=== PATIENT | female | born 1990 | race American Indian/Alaskan Native ===

== ENCOUNTER 2019-08-30 08:30 | Inpatient (IN) | payer MEDICAID ==
[2019-08-30] MEDS ORDERED: DINOPROSTONE 10 MG VAG SUPP VG NR (10:00)
[2019-08-30 10:10] LABS: Hematocrit 31.2 % (30.3-42.9); Hemoglobin 10.1 gm/dl (10.1-14.3); Mean Corpuscular HGB Conc 32 % (30-34); Mean Corpuscular Volume 84 fl (79-97); Platelet Count 184 K/mm3 (140-440); Red Blood Count 3.69 M/mm3 (3.65-5.03); Red Cell Distribution Width 14.8 % (13.2-15.2)
[2019-08-30] MEDS: LACTATED RINGERS 1,000 ML IV SCH ×3 (11:00→18:11)
[2019-08-30] MEDS ORDERED: LACTATED RINGERS 1,000 ML ONE (11:09)
[2019-08-30] MEDS ORDERED: BUTORPHANOL 2 MG/1 ML INJ IV PRN ×2 (11:24)
[2019-08-30] MEDS ORDERED: ePHEDrine SULFATE 50 MG/1 ML INJ IV PRN ×2 (11:24→17:56)
[2019-08-30] MEDS ORDERED: MINERAL OIL 30 ML ORAL LIQD PO PRN (11:24)
[2019-08-30] MEDS ORDERED: TERBUTALINE 1 MG/1 ML INJ IVP PRN (11:24)
[2019-08-30] MEDS ORDERED: TERBUTALINE 1 MG/1 ML INJ SUB-Q PRN (11:24)
[2019-08-30] MEDS ORDERED: OXYTOCIN DRIP 30 UNITS/500 ML BAG IV SCH ×2 (12:00)
[2019-08-30] MEDS ORDERED: OXYTOCIN 20 UNIT/1000ML DRIP 20 UNITS/1,000 ML BAG IV SCH ×2 (12:00→23:45)
[2019-08-30] MEDS ORDERED: LIDOCAINE (2%) 20 MG/1 ML VIAL 20 ML MDV INFILTRATI ONE (12:00)
--- NOTE | 2019-08-30 13:29 | History and Physical Report ---
History of Present Illness Date of examination: 08/30/19 Date of admission: 08/30/19 Chief complaint: 29 yo at 39 weeks here for IOL for anti e alloimmunization Past History Past Medical History: no pertinent history Past Surgical History: no surgical history Family/Genetic History: none Social history: no significant social history, single. denies: smoking, alcohol abuse, prescription drug abuse - Obstetrical History Expected Date of Delivery: 09/04/19 Actual Gestation: 39 Week(s) 2 Day(s) : 5 Para: 4 Hx # Term Pregnancies: 4 Number of Pregnancies: 0 Spontaneous Abortions: 0 Induced : 0 Number of Living Children: 4 Medications and Allergies Allergies Allergy/AdvReac Type Severity Reaction Status Date / Time No Known Allergies Allergy Unverified 08/30/19 08:50 Home Medications Medication Instructions Recorded Confirmed Last Taken Type No Known Home Medications [No 08/30/19 08/30/19 Unknown History Reported Home Medications] Active Meds: Active Medications Butorphanol Tartrate (Stadol) 1 mg IV Q2H PRN PRN Reason: Labor Pain Butorphanol Tartrate (Stadol) 2 mg IV Q2H PRN PRN Reason: Pain , Severe (7-10) Last Admin: 08/30/19 12:09 Dose: 2 mg Documented by: Dinoprostone (Cervidil) 10 mg VG ONCE NR Stop: 08/30/19 11:30 Ephedrine Sulfate (Ephedrine Sulfate) 10 mg IV Q2M PRN PRN Reason: Hypotension Oxytocin/Sodium Chloride (Pitocin/Ns 20 Unit/1000ml Drip) 20 units in 1,000 mls @ 125 mls/hr IV DIRECT FABI Oxytocin/Sodium Chloride (Pitocin/Ns 30 Unit/500ml) 30 units in 500 mls @ 0 mls/hr IV TITR FABI; Protocol Last Admin: 08/30/19 11:57 Dose: 1 ml/hr, 1 mls/hr Documented by: Lactated Ringer's (Lactated Ringers) 1,000 mls @ 125 mls/hr IV DIRECT FABI Last Admin: 08/30/19 12:05 Dose: 125 mls/hr Documented by: Lidocaine (Xylocaine 2%) 20 ml INFILTRATI ONCE ONE Stop: 08/30/19 12:01 Mineral Oil (Mineral Oil) 30 ml PO QHS PRN PRN Reason: Constipation Terbutaline Sulfate (Brethine) 0.25 mg SUB-Q ONCE PRN PRN Reason: Hyperstimulation/Hypertonicity Terbutaline Sulfate (Brethine) 0.25 mg IVP ONCE PRN PRN Reason: Hyperstimulation/Hypertonicity Review of Systems All systems: negative - Vital Signs Vital signs: Vital Signs Temp Resp 98.2 F 18 08/30/19 09:30 08/30/19 09:30 Temp Pulse Resp BP Pulse Ox 98.2 F 87 18 112/61 97 08/30/19 09:30 08/30/19 13:20 08/30/19 09:30 08/30/19 13:05 08/30/19 13:20 - Physical Exam Breasts: Positive: normal Cardiovascular: Regular rate, Normal S1 Lungs: Positive: Clear to auscultation, Normal air movement Abdomen: Positive: normal appearance, soft, normal bowel sounds. Negative: distention, tenderness, guarding Genitourinary (Female): Positive: normal external genitalia, normal perenium Vagina: Positive: normal moisture Uterus: Positive: normal size, normal contour Anus/Rectum: Positive: normal perianal skin Extremities: Positive: normal Deep Tendon Reflex Grade: Normal +2 - Obstetrical FHR: category 1 Cervical Dilatation: 1 Uterine Contraction Pattern: Regular Uterine Tone Measurement Phase: Contraction Uterine Contraction Intensity: Moderate Results Result Diagrams: 08/30/19 09:44 Abnormal lab results 08/30/19 Range/Units 09:44 MCH 27 L (28-32) pg All other labs normal. Assessment and Plan IUP 39 weeks IOL anti e admit ivf and labs intiate IOL
--- NOTE | 2019-08-30 15:21 | Consultation ---
Consult Note - Parent Education Parent(s) demonstrated understanding of all the information:: Yes Additional Comment: Discussed both parents being carriers for alpha thalassemia and implications for baby. Mother states she was educated previously and does not have any questions at this ti,e. Discussed Anti-E antibody and possibility of hydrops. US does not indicate any hydrops, information discussed with mother. Encouraged to call for any questions Assessment and Plan - Assessment Gestation:: 39 - Plan Plan: Please call NICU with questions
[2019-08-30] MEDS ORDERED: DEXMEDETOMIDINE 200 MCG/2 ML VIAL IV ONE (17:26)
[2019-08-30] MEDS ORDERED: NALOXONE 2 MG/2 ML INJ IV PRN (17:56)
[2019-08-30] MEDS ORDERED: fentaNYL-BUPIV 2 MCG/ML-0.125% 200 MCG/100 ML BAG EPIDURAL SCH (18:00)
--- NOTE | 2019-08-30 18:03 | Progress Note ---
Labor Epidural - Labor Epidural Start Time: 17:32 Stop Time: 17:42 Procedure: Patient is requesting a laboring epidural for laboring pain. Patient IDed, H&P reviewed, all questions and concerns were answered, and consent was signed. Timeout was performed at bedside. Patient in sitting position. Sterile prep and drape was performed. [3] ml of 1% lidocaine skin wheal at L[3]- L [4]. 18- gauge Touhy epidural needle was advanced to loss of resistance with air techn ique 7 cm. Negative CSF negative blood. Epidural catheter advanced to [15] centimeters. [Negative] Aspiration [negative test dose. Sterile dressing applied. Patient tolerated procedure.
--- NOTE | 2019-08-30 18:06 | Anesthesia Consultation ---
Anesthesia Consult and Med Hx Date of service: 08/30/19 - Airway Anesthetic Teeth Evaluation: Poor ROM Head & Neck: Adequate Mental/Hyoid Distance: Adequate Mallampati Class: Class II Intubation Access Assessment: Probably Good - Pulmonary Exam CTA: Yes - Cardiac Exam Cardiac Exam: RRR - Pre-Operative Health Status ASA Pre-Surgery Classification: ASA2 Proposed Anesthetic Plan: Epidural - Pulmonary Hx Smoking: Yes Hx Asthma: No Hx Respiratory Symptoms: No SOB: No COPD: No Home Oxygen Therapy: No Hx Pneumonia: No Hx Sleep Apnea: No - Cardiovascular System Hx Hypertension: No Hx Coronary Artery Disease: No Hx Heart Attack/AMI: No Hx Angina: No Hx Percutaneous Transluminal Coronary Angioplasty (PTCA): No Hx Cardia Arrhythmia: No Hx Pacemaker: No Hx Internal Defibrillator: No Hx Valvular Heart Disease: No Hx Heart Murmur: No Hx Peripheral Vascular Disease: No - Central Nervous System Hx Neuromuscular Disorder: No Hx Seizures: No CVA: No Hx Back Pain: No Hx Psychiatric Problems: No - Gastrointestinal Hx Ulcer: No Hx Gastroesophageal Reflux Disease: Yes - Endocrine Hx Renal Disease: No Hx End Stage Renal Disease: No Hx Cirrhosis: No Hx Liver Disease: No Hx Insulin Dependent Diabetes: No Hx Non-Insulin Dependent Diabetes: No Hx Thyroid Disease: No Hx Hypothyroidism: No Hx Hyperthyroidism: No - Hematic Hx Anemia: No Hx Sickle Cell Disease: No - Other Systems Hx Alcohol Use: No Hx Substance Use: No Hx Cancer: No Hx Obesity: Yes
[2019-08-30] MEDS ORDERED: miSOPROStol 200 MCG TAB ONE (19:46)
[2019-08-30] MEDS ORDERED: OXYTOCIN 10 UNIT/1 ML INJ ONE (19:47)
--- NOTE | 2019-08-30 19:55 | Procedure Note ---
OB Delivery Note - Delivery Date of Delivery: 08/30/19 Surgeon: KALPESH LUEVANO Estimated blood loss: other (400cc) - Vaginal Delivery presentation: vertex Delivery position: OA Intrapartum events: meconium (light) Delivery induction: oxytocin Delivery augmentation: rupture of membranes Delivery monitor: external FHT, external uterine Route of delivery: Delivery placenta: spontaneous Delivery cord: 3 umbilical vessels Episiotomy: none Delivery laceration: none Anesthesia: none Delivery comments: Patient was noted to be c/c/ +1 and commenced to pushing a viable male infant in MIMI position at 740. The baby placed on the moms chest with suction of nasopharyngeal by peds nursing staff. The cord was clamped and cut. The placenta delivered at 743p intact. No lacerations noted. Uterine atony and cytotec 800 mg placed in rectum. EBL 400 cc. Patient tolerated procedure well and bonding with baby. - A at 1 minute: 8 at 5 minutes: 9 (7 pounds 1.6oz) Infant Gender: Male
[2019-08-30] MEDS ORDERED: OXYTOCIN 10 UNIT/1 ML INJ IM ONE (20:26)
[2019-08-30] MEDS ORDERED: miSOPROStol 200 MCG TAB PR ONE (20:26)
--- NOTE | 2019-08-30 21:58 | Post Anesthesia Evaluation ---
- Post Anesthesia Evaluation Patient Participated: Yes Airway Patent: Yes Stable Respiratory Function: Yes Nausea/Vomiting: No Temp > 96.8F: Yes Pain Manageable: Yes Adequeate Hydration: Yes Anesthesia Complications: No Block Receding Appropriately: Yes Patient on Ventilator: No
[2019-08-31] MEDS: IBUPROFEN 600 MG TAB PO SCH ×4 (00:18→23:28)
--- NOTE | 2019-08-31 07:46 | Progress Note ---
Assessment and Plan - Patient Problems (1) Normal spontaneous vaginal delivery Current Visit: Yes Status: Acute Plan to address problem: Patient doing well Discharge home tomorrow Subjective - Subjective Date of service: 08/31/19 Interval history: Patient without any significant complaints. She reports her lochia is minimal. Her pain is well controlled. Patient reports: appetite normal, voiding normally, pain well controlled [place]: doing well Objective - Vital Signs Latest vital signs: Vital Signs Temp Pulse Resp BP Pulse Ox 08/31/19 07:21 98.0 F 62 18 98/36 97 08/31/19 03:55 98.5 F 76 18 99/53 96 08/30/19 22:24 18 08/30/19 21:51 83 130/52 08/30/19 21:36 96 H 123/62 08/30/19 21:21 77 111/56 08/30/19 21:06 86 127/59 08/30/19 21:01 81 126/58 08/30/19 20:36 82 105/56 08/30/19 20:25 74 100/50 08/30/19 20:23 63 186/118 08/30/19 20:05 91 H 99/60 08/30/19 19:41 68 37 L 08/30/19 19:38 112 H 129/58 08/30/19 19:30 108 H 99 08/30/19 19:25 130 H 97 08/30/19 19:20 100 H 99 08/30/19 19:16 64 91 08/30/19 19:15 62 95 08/30/19 19:10 85 99 08/30/19 19:08 77 93/53 08/30/19 19:05 90 96 08/30/19 19:03 97 H 100/55 08/30/19 19:00 89 99 08/30/19 18:55 89 97 08/30/19 18:50 75 98 08/30/19 18:45 97 H 98 08/30/19 18:39 96 H 98 08/30/19 18:37 92 H 138/84 94 08/30/19 18:34 98 H 98 08/30/19 18:29 78 97 08/30/19 18:24 82 97 08/30/19 18:22 98 H 89 08/30/19 18:19 90 97 08/30/19 18:14 92 H 99 08/30/19 18:09 100 H 98 08/30/19 18:05 95 H 92/54 08/30/19 18:04 94 H 99 08/30/19 18:03 93 H 95/50 08/30/19 18:01 86 97/55 08/30/19 18:00 98.2 F 18 08/30/19 17:59 102 H 103/54 100 08/30/19 17:57 98 H 102/51 08/30/19 17:55 101 H 99/53 08/30/19 17:54 97 H 98 08/30/19 17:53 102 H 107/54 08/30/19 17:51 103 H 108/57 08/30/19 17:49 100 H 120/63 99 08/30/19 17:47 100 H 124/61 08/30/19 17:45 103 H 116/54 08/30/19 17:44 106 H 96 08/30/19 17:42 71 91 08/30/19 17:39 98 H 108/55 97 08/30/19 17:37 110 H 92/41 08/30/19 17:35 96 H 92 08/30/19 17:34 97 H 98 08/30/19 17:29 92 H 100 08/30/19 17:24 95 H 98 08/30/19 17:22 115 H 86 08/30/19 17:19 78 99 08/30/19 17:14 103 H 99 08/30/19 17:09 109 H 99 08/30/19 17:07 76 121/59 08/30/19 17:04 107 H 98 08/30/19 16:59 93 H 99 08/30/19 16:54 76 98 08/30/19 16:49 101 H 88 08/30/19 16:44 85 98 08/30/19 16:39 91 H 99 08/30/19 16:38 72 107/59 08/30/19 16:34 95 H 98 08/30/19 16:29 80 99 08/30/19 16:24 81 100 08/30/19 16:19 81 98 08/30/19 16:14 79 97 08/30/19 16:09 80 98 08/30/19 16:05 91 H 111/66 08/30/19 16:04 90 97 08/30/19 15:59 77 98 08/30/19 15:54 86 98 08/30/19 15:31 78 98 08/30/19 15:26 75 99 08/30/19 15:21 85 97 08/30/19 15:16 85 98 08/30/19 15:11 79 97 08/30/19 15:06 70 92/57 97 08/30/19 15:01 77 97 08/30/19 14:56 67 97 08/30/19 14:51 75 97 08/30/19 14:46 76 96 08/30/19 14:41 78 97 08/30/19 14:37 73 104/67 08/30/19 14:36 77 98 08/30/19 14:31 80 98 08/30/19 14:26 76 97 08/30/19 14:21 74 97 08/30/19 14:16 80 97 08/30/19 14:11 72 98 08/30/19 14:06 85 102/59 97 08/30/19 14:00 74 98 08/30/19 13:55 77 97 08/30/19 13:50 74 98 08/30/19 13:45 79 98 08/30/19 13:40 83 98 08/30/19 13:35 72 109/55 98 08/30/19 13:30 82 98 08/30/19 13:25 73 98 08/30/19 13:20 87 97 08/30/19 13:15 94 H 98 08/30/19 13:10 91 H 98 08/30/19 13:05 72 112/61 96 08/30/19 13:00 93 H 97 08/30/19 12:55 83 98 08/30/19 12:50 86 98 08/30/19 12:45 84 98 08/30/19 12:40 85 96 08/30/19 12:37 80 109/61 08/30/19 12:35 80 97 08/30/19 12:30 89 98 08/30/19 12:25 87 98 08/30/19 12:20 82 98 08/30/19 12:15 104 H 99 08/30/19 12:10 90 100 08/30/19 12:05 82 118/64 99 08/30/19 11:53 90 98 08/30/19 11:48 75 98 08/30/19 11:43 84 98 08/30/19 11:38 83 98 08/30/19 11:33 78 97 08/30/19 11:28 78 98 08/30/19 11:23 90 97 08/30/19 11:18 99 H 98 08/30/19 11:13 81 97 08/30/19 11:08 102 H 97 08/30/19 11:02 95 H 88 08/30/19 10:59 93 H 98 08/30/19 10:54 93 H 99 08/30/19 10:49 92 H 99 08/30/19 10:44 87 99 08/30/19 10:43 91 H 114/75 08/30/19 10:39 86 98 08/30/19 10:34 88 99 08/30/19 10:29 78 99 08/30/19 10:24 82 100 08/30/19 10:19 85 99 08/30/19 10:14 78 99 08/30/19 10:09 85 98 08/30/19 10:04 90 99 08/30/19 09:59 82 98 08/30/19 09:54 91 H 99 08/30/19 09:49 86 98 08/30/19 09:44 87 98 08/30/19 09:39 91 H 99 08/30/19 09:34 87 110/62 98 08/30/19 09:30 98.2 F 18 Intake and Output 08/30/19 08/31/19 08/31/19 22:59 06:59 14:59 Intake Total 762.5 Output Total 700 Balance 62.5 Intake: IV 762.5 Lactated Ringers 1,000 ml 762.5 @ 125 mls/hr IV DIRECT [facility] Rx#:[id number] Output: Urine 700 Indwelling Catheter 400 Void 300 Other: Total, Output Amount 300 # Voids Void 1 Estimated Blood Loss 400 - Exam Uterus: Present: normal, firm - Labs Labs: Abnormal lab results 08/30/19 08/30/19 Range/Units 09:44 09:44 MCH 27 L (28-32) pg Crossmatch See Detail
--- NOTE | 2019-08-31 07:47 | Discharge Summary ---
Providers - Providers Date of Admission: 08/30/19 20:23 Date of discharge: 09/01/19 Attending physician: KALPESH LUEVANO MD 08/30/19 08:58 Consult to Physician [CONS] Stat Comment: ISOIMMUNIZATION AND ALPHA THALASSEMIA TRAIT Consulting Provider: KARINA BEAL Physician Instructions: PER M NOTIFY NEONATOLOGY REGARDING Reason For Exam: ISOIMMUNIZATION AND ALPHA THALASSEMIA TRAIT Primary care physician: KALPESH LUEVANO MD Hospitalization Reason for admission: induction of labor Delivery: Discharge diagnosis: IUP at term delivered Hospital course: Patient admitted for induction of labor for isoimmunization. The patient had a spontaneous vaginal delivery. Her course was uneventful. Condition at discharge: Good Disposition: DC-01 TO HOME OR SELFCARE - Discharge Diagnoses (1) Normal spontaneous vaginal delivery Status: Acute Plan - Discharge Medications Prescriptions: Ibuprofen [Motrin] 600 mg PO Q8H PRN #30 tablet PRN Reason: Pain HYDROcodone/APAP 5-325 [[place] 5/325] 1 each PO Q6HR PRN #20 tablet PRN Reason: Pain - Provider Discharge Summary Activity: no sex for 6 weeks, no heavy lifting 4 weeks, no strenuous exercise Diet: routine Instructions: routine Additional instructions: [] Smoking cessation referral if applicable(refer to patient education folder for contact #) [] Refer to [facility] Booklet Call your doctor immediately for: * Fever > 100.5 * Heavy vaginal bleeding ( >1 pad per hour) * Severe persistent headache * Shortness of breath * Reddened, hot, painful area to leg or breast * Schedule visit in 4 weeks - Follow up plan
[2019-08-31 08:33] LABS: Basophils % (Auto) 0.2 % (0.0-1.8); Eosinophils # (Auto) 0.2 K/mm3 (0.0-0.4); Eosinophils % (Auto) 1.3 % (0.0-4.3); Hematocrit 26.3 % (30.3-42.9); Hemoglobin 8.5 gm/dl (10.1-14.3); Lymphocytes # (Auto) 1.5 K/mm3 (1.2-5.4); Lymphocytes % (Auto) 12.7 % (13.4-35.0); Mean Corpuscular HGB Conc 32 % (30-34); Mean Corpuscular Volume 85 fl (79-97); Monocytes # (Auto) 0.7 K/mm3 (0.0-0.8); Monocytes % (Auto) 5.8 % (0.0-7.3); Platelet Count 150 K/mm3 (140-440); Red Cell Distribution Width 14.9 % (13.2-15.2)
[2019-08-31] MEDS: oxyCODONE /ACETAMINOPHEN 5-325MG TAB PO PRN (12:13)
[2019-09-01] MEDS: oxyCODONE /ACETAMINOPHEN 5-325MG TAB PO PRN (08:57)
[2019-09-01 11:44] VITALS: BP 102/62
[2019-09-01] MEDS: IBUPROFEN 600 MG TAB PO SCH (12:14)
== END 2019-09-01 12:24 | disposition home or self-care (01) | DRG 775 ==
LOC: TRG 08:30 → LD 08:31 → TRG 20:22 → LD 20:23 → OB 22:58
PROVIDERS: ADMIT Obstetrics & Gynecology; ATTEND Obstetrics & Gynecology
PROC: 10E0XZZ Delivery of Products of Conception, External Approach (ICD-10-PCS; principal; 2019-08-30)
DX: O77.0 Labor and delivery complicated by meconium in amniotic fluid (principal); Z3A.39 39 weeks gestation of pregnancy; Z37.0 Single live birth; O62.2 Other uterine inertia
CPT/HCPCS: 36415; 85025; 85027; 86592; 86850; 86870; 86900; 86901; 86922; G0378; J0595; J2590; J3490; J7120